=== PATIENT | male | born 1945 | race Caucasian/White ===

== ENCOUNTER 2018-09-04 09:43 | Inpatient (IN) | payer MEDICARE, MEDICAID ==
--- NOTE | 2018-09-04 10:01 | ED Physician Chart ---
ED Chief Complaint/HPI - Patient Information Date Seen:: 09/04/18 Time Seen:: 09:45 Chief Complaint:: hypoxemia History of Present Illness:: About one hour prior to arrival patient had a pulse ox of 72%. Paramedics were called. Diffuse rhonchi were auscultated over the chest. Accu-Chek was 224. Patient was given a breathing treatment and his pulse ox improved but he continued having labored respirations. EKG performed by the paramedics showed a normal sinus rhythm with a rate of 89, borderline left axis deviation, no ST or T-wave changes. Historian:: EMS, Other (soil engineer) Review:: Transfer documents Reviewed ED Review of Systems - Review of Systems General/Constitutional: No fever, No chills, No weight loss, No weakness, No diaphoresis, No edema, No loss of appetite Skin: No skin lesions, No rash, No bruising Head: No headache, No light-headedness Eyes: No loss of vision, No pain, No diplopia ENT: No earache, No nasal drainage, No sore throat, No tinnitus Neck: No neck pain, No swelling, No thyromegaly, No stiffness, No mass noted Cardio Vascular: No chest pain, No palpitations, No PND, No orthopnea, No edema Pulmonary: SOB, No cough, No sputum, No wheezing GI: No nausea, No vomiting, No diarrhea, No pain, No melena, No hematochezia, No constipation, No hematemesis G/U: No dysuria, No frequency, No hematuria Musculoskeletal: No bone or joint pain, No back pain, No muscle pain Endocrine: No polyuria, No polydipsia Psychiatric: Prior psych history Hematopoietic: No bruising, No lymphadenopathy Allergic/Immuno: No urticaria, No angioedema Neurological: No syncope, No focal symptoms, No paresthesia, No headache, No seizure, Confusion, No vertigo ED Past Medical History - Past Medical History Past Medical History: DM, PUD/GERD, Seizures, Other (anemia; schizophrenia; status post urinary tract infection; history of encephalopathy) Family History: Other (unavailable) Social History: Care Facility Surgical History: PEG/GTube Psychiatricy History: Schizophrenia Medication: Reviewed Family Medical History - Family Member Mother History Unknown: Yes ED Physical Exam - Physical Examination Other Gen/Cons comments:: Patient appears alert but is nonverbal Head: Atraumatic Eyes: Lids, conjuctiva normal, PERRL Skin: Nl inspection ENMT: External ears, nose nl Other ENMT comments:: Appears to be edentulous Neck: No JVD Other Respiratory comments:: Diffuse harsh breath sounds Cardio Vascular: No murmur, gallop, rubs Other Cardio Vascular comments:: Heart sounds inaudible GI: No tenderness/rebounding/guarding, No organomegaly Extremities: Normal digits & nails Neuro/Psych: No focal deficits ED Labs/Radiology/EKG Results - Lab Results Results: Laboratory Results - last 24 hr 09/04/18 09/04/18 09:55 09:55 Sodium 126 L Potassium 3.2 L Chloride 79 L Carbon Dioxide 38.9 H Anion Gap 11.3 BUN 26 H Creatinine 0.7 Est GFR ( Amer) TNP Est GFR (Non-Af Amer) TNP BUN/Creatinine Ratio 37.1 Glucose 226 H Calcium 9.3 Valproic Acid 71.8 ED Septic Shock - . Is Septic Shock (SBP<90, OR Lactate>4 mmol\L) present?: No ED Reassessment (Disposition) - Reassessment Reassessment Condition:: Improved - Diagnosis Diagnosis:: Severe hypoxemia; respiratory distress; possible respiratory failure; hyponatremia; hyperglycemia; possible aspiration pneumonia without radiographic findings; diabetes; dementia - Patient Disposition Admitted to:: Telemetry Spoke to:: Manan Garza Admitting Medical Physician:: Manan Garza Condition at Disposition:: Stable, Improved
[2018-09-04] MEDS ORDERED: Albuterol/Ipratropium Neb 3 ML AERS HHN ONE ×2 (10:07→10:09)
--- NOTE | 2018-09-04 10:28 | Diagnostic Imaging Report ---
CHEST X-RAY: AP view INDICATION: Shortness evidence of breath COMPARISON: None FINDINGS: There is abnormal lucency seen along the mid thorax possibly due to significantly distended esophagus. No focal consolidation or effusion. Heart size normal. Degenerative changes are noted. IMPRESSION: Abnormal lucency seen throughout the mid thorax possibly due to a significantly distended esophagus. Etiology such as achalasia should be considered. Recommend clinical correlation and correlation with old exams. Consider further assessment with an esophagram or CT exam.
[2018-09-04 10:37] LABS: ANION GAP 11.3 (7.0-16.0); BUN - UREA NITROGEN 26 mg/dL (7-25); CALCIUM SERUM 9.3 mg/dL (8.6-10.3); CARBON DIOXIDE 38.9 mEq/L (21.0-31.0); CREATININE - SERUM 0.7 mg/dL (0.7-1.3); GLUCOSE 226 mg/dL (70-105); POTASSIUM SERUM 3.2 mEq/L (3.5-5.1); SODIUM SERUM 126 mEq/L (136-145)
[2018-09-04 10:47] LABS: CHLORIDE 79 mEq/L (98-107)
[2018-09-04] MEDS ORDERED: Potassium Chloride Elixir 20 mEq /15 mL UDC GT ONE (10:52)
[2018-09-04] MEDS ORDERED: Potassium Chloride Elixir 20 mEq /15 mL UDC ONE (10:58)
[2018-09-04 11:00] LABS: % BASOPHILS 0.2 % (0.0-2.0); % LYMPHOCYTES 10.4 % (20.0-50.0); % MONOCYTES 8.9 % (2.0-10.0); % NEUTROPHILS 79.5 % (40.0-80.0); EOSINOPHILE ABSOLUTE 0.1 Th/cmm (0.1-0.4); HEMATOCRIT 38.2 % (41.0-60); HEMOGLOBIN 12.5 gm/dL (12-16); LYMPHOCYTE ABSOLUTE 1.2 Th/cmm (1.5-3.0); MEAN CELL VOLUME 90.6 fl (80-99); MEAN CORPUSCULAR HEMOGLOBIN 29.5 pg (27.0-31.0); MEAN CORPUSCULAR HGB CONC 32.6 pg (28.0-36.0); MEAN PLATELET VOLUME 7.7 fl; NEUTROPHILE ABSOLUTE 8.8 Th/cmm (1.8-8.0); PLATELET COUNT 416 Th/cmm (150-400); RED BLOOD COUNT 4.22 Mil/cmm (3.80-5.80); RED CELL DISTRIBUTION WIDTH 14.3 % (11.5-20.0); WHITE BLOOD COUNT 11.1 Th/cmm (4.8-10.8)
[2018-09-04] MEDS ORDERED: GLUCAGON HCl 1 MG KIT SUBQ PRN (13:01)
[2018-09-04] MEDS ORDERED: Maalox 30 mL Cup PO PRN (13:03)
[2018-09-04] MEDS ORDERED: guaiFENesin 200 MG/10 ML UDC PO PRN (13:03)
[2018-09-04] MEDS: D5-0.9%NS 1,000 ML IV SCH (14:00)
--- NOTE | 2018-09-04 14:02 | Internal Medicine Prog Note ---
Internal Medicine Subjective - Subjective Service Date: 09/04/18 ([facility] [id number]) Internal Medicine Objective - Results Result Diagrams: 09/04/18 09:55 09/04/18 09:55 Recent Labs: Laboratory Last Values WBC 11.1 Th/cmm (4.8-10.8) H 09/04/18 09:55 RBC 4.22 Mil/cmm (3.80-5.80) 09/04/18 09:55 Hgb 12.5 gm/dL (12-16) 09/04/18 09:55 Hct 38.2 % (41.0-60) L 09/04/18 09:55 MCV 90.6 fl (80-99) 09/04/18 09:55 MCH 29.5 pg (27.0-31.0) 09/04/18 09:55 MCHC Differential 32.6 pg (28.0-36.0) 09/04/18 09:55 RDW 14.3 % (11.5-20.0) 09/04/18 09:55 Plt Count 416 Th/cmm (150-400) H 09/04/18 09:55 MPV 7.7 fl 09/04/18 09:55 Neutrophils % 79.5 % (40.0-80.0) 09/04/18 09:55 Lymphocytes % 10.4 % (20.0-50.0) L 09/04/18 09:55 Monocytes % 8.9 % (2.0-10.0) 09/04/18 09:55 Eosinophils % 1.0 % (0.0-5.0) 09/04/18 09:55 Basophils % 0.2 % (0.0-2.0) 09/04/18 09:55 Sodium 126 mEq/L (136-145) L 09/04/18 09:55 Potassium 3.2 mEq/L (3.5-5.1) L 09/04/18 09:55 Chloride 79 mEq/L (98-107) L 09/04/18 09:55 Carbon Dioxide 38.9 mEq/L (21.0-31.0) H 09/04/18 09:55 Anion Gap 11.3 (7.0-16.0) 09/04/18 09:55 BUN 26 mg/dL (7-25) H 09/04/18 09:55 Creatinine 0.7 mg/dL (0.7-1.3) 09/04/18 09:55 Est GFR ( Amer) TNP 09/04/18 09:55 Est GFR (Non-Af Amer) TNP 09/04/18 09:55 BUN/Creatinine Ratio 37.1 09/04/18 09:55 Glucose 226 mg/dL (70-105) H 09/04/18 09:55 POC Glucose 201 MG/DL (70 - 105) H 09/04/18 12:52 Calcium 9.3 mg/dL (8.6-10.3) 09/04/18 09:55 Valproic Acid 71.8 ug/mL (50.0-100.0) 09/04/18 09:55 - Physical Exam Vitals and I&O: Vital Signs Temp 98.3 F 09/04/18 12:29 Pulse 88 09/04/18 12:29 Resp 23 09/04/18 12:29 BP 109/62 09/04/18 12:29 Pulse Ox 97 09/04/18 12:29 Intake & Output 09/03/18 09/04/18 09/04/18 18:59 06:59 18:59 Weight (lbs) 140 lb Other: Weight Source Estimated Active Medications: Current Medications Acetaminophen (Tylenol) 650 mg PO Q4H PRN PRN Reason: Pain Or Fever above 101 Stop: 11/03/18 13:02 Al Hydrox/Mg Hydrox/Simethicone (Maalox) 30 ml PO Q6H PRN PRN Reason: Dyspepsia Stop: 11/03/18 13:02 Albuterol Sulfate (Albuterol 2.5mg/3ml Neb Ud) 2.5 mg HHN QIDRT [facility] Stop: 11/03/18 14:59 Benztropine Mesylate (Cogentin) 2 mg GT DAILY [facility] Stop: 11/04/18 08:59 Carbidopa/Levodopa (Sinemet 25mg-100 Mg) 1 tab GT TID [facility] Stop: 11/03/18 13:59 Clonazepam (Klonopin) 0.5 mg PO Q8HR [facility]; Protocol Stop: 11/03/18 20:59 Docusate Sodium (Colace) 100 mg GT BID [facility] Stop: 11/03/18 16:59 Fish Oil ([place] 3) 1,000 mg PO DAILY [facility] Stop: 11/04/18 08:59 Guaifenesin (Robitussin) 200 mg PO Q4HR PRN PRN Reason: Cough or Congestion Stop: 11/03/18 13:02 Heparin Sodium (Porcine) (Heparin) 5,000 units SUBQ Q12HR [facility] Stop: 11/03/18 20:59 Cefepime HCl 1 gm/ Dextrose 50 mls @ 100 mls/hr IV Q12H [facility] Stop: 11/03/18 13:59 Dextrose/Sodium Chloride (D5-0.9%Ns) 1,000 mls @ 80 mls/hr IV .[id number] [facility] Stop: 11/03/18 13:14 Last Admin: 09/04/18 14:00 Dose: 80 mls/hr Insulin Aspart (Novolog) 0 units SUBQ ACHS [facility]; Protocol Stop: 11/03/18 16:29 Ipratropium [place] (Atrovent Neb 0.5mg/2.5ml) 0.5 mg IH QIDRT [facility] Stop: 11/03/18 14:59 Lactobacillus Rhamnosus (Culturelle 15b) 1 each GT DAILY [facility] Stop: 11/04/18 08:59 Lorazepam (Ativan) 1 mg GT Q6HR PRN; Protocol PRN Reason: Agitation Stop: 11/03/18 17:59 Metformin HCl (Glucophage) 500 mg GT BID [facility] Stop: 11/03/18 16:59 Methylprednisolone Sodium Succinate (Solu-Medrol) 80 mg IVP Q8HR [facility] Stop: 11/03/18 20:59 Mirtazapine (Remeron) 15 mg GT HS [facility]; Protocol Stop: 11/03/18 20:59 Miscellaneous (Glucagon,Human Recombinant [Glucagon Emergency Kit]) 1 mg IJ PRN PRN PRN Reason: HYPOGLYCEMIA Miscellaneous (Melatonin [Melatonin]) 5 mg PO HS [facility] Stop: 11/03/18 20:59 Miscellaneous (Valproic Acid (As Sodium Salt) [Depakene]) 750 mg PO HS [facility] Stop: 11/03/18 20:59 Miscellaneous (Valproic Acid (As Sodium Salt) [Depakene]) 500 mg GT DAILY [facility] Stop: 11/04/18 08:59 Multivitamins/Vitamin C (Theragran) 1 tab GT DAILY [facility] Stop: 11/04/18 08:59 Nitroglycerin (Nitrostat) 0.4 mg SL Q5MIN PRN PRN Reason: Chest Pain Stop: 11/03/18 13:02 Ondansetron HCl (Zofran) 4 mg IV Q8H PRN PRN Reason: Nausea / Vomiting Stop: 11/03/18 13:02 Pantoprazole Sodium (Protonix) 20 mg GT DAILY [facility] Stop: 11/04/18 08:59 Quetiapine Fumarate (Seroquel) 300 mg GT HS [facility]; Protocol Stop: 11/03/18 20:59
[2018-09-04] MEDS: Albuterol Nebulizer 2.5mg/3mL HHN SCH ×2 (14:09→18:44)
[2018-09-04] MEDS: Ipratropium Neb 0.5 mg/2.5 mL UD IH SCH ×2 (14:09→18:45)
[2018-09-04] MEDS: INSULIN ASPART, RECOMBINANT 100 UNITS/ML SUBQ SCH ×2 (17:05→20:51)
[2018-09-04] MEDS: Docusate Sodium 100 mg/10 mL UD GT SCH (17:14)
--- NOTE | 2018-09-04 17:30 | History & Physical ---
ADMIT DATE: 09/04/2018 DICTATING FOR: Dr. Manan Garza. CHIEF COMPLAINT: Low oxygen. HISTORY OF PRESENT ILLNESS: This is a 73-year-old male who is a [facility] resident, transferred here to [facility] due to hypoxemia. In the ER, the patient was noted to have oxygen saturation of 72%. Upon examining the patient, the patient is noted to be congested, unable to produce strong cough. For further management, the patient is now admitted to the telemetry unit. PAST MEDICAL HISTORY: Diabetes, GERD, seizures, anemia, schizophrenia, UTI, encephalopathy. FAMILY HISTORY: Noncontributory. SOCIAL HISTORY: The patient is a [facility] resident, requiring 24-hour nursing care. PAST SURGICAL HISTORY: PEG. MEDICATIONS: Please see medication list. PHYSICAL EXAMINATION: GENERAL: Elderly male, awake, alert, appears chronically ill, no apparent distress. VITAL SIGNS: Temperature 98.3, heart rate 88, blood pressure 109/62, respirations 23, O2 of 97%. HEENT: Head: Normocephalic, atraumatic. NECK: Supple. No mass. LUNGS: Scattered rhonchi with scattered wheezes bilaterally. HEART: Regular rhythm. No murmurs, no gallops. ABDOMEN: Soft, nontender, nondistended. EXTREMITIES: No trace of edema noted. LABORATORY DATA: WBC 11.1, H and H 12.5 and 38.2, platelet of 416. Sodium 126, potassium 3.2, chloride 79, BUN 26, creatinine 0.7. DIAGNOSTIC DATA: The patient had a chest x-ray done, impression is abnormal lucency throughout the mid thorax, possibly due to significantly distended esophagus, etiology such as achalasia should be considered. Recommended clinical correlation, correlation with old exams, consider further examination with CT esophagram. ASSESSMENT: Acute respiratory failure, possible pneumonia, leukocytosis, acute renal insufficiency, rule out dehydration, diabetes, seizures, schizophrenia. PLAN: 1. The patient to be admitted to the telemetry unit. We will get a Pulmonology on the case. Sputum culture. 2. Respiratory treatment, IV fluids for hydration, IV antibiotics of Maxipime 1 gram IV q.12h. Accu-Chek a.c. and at bedtime. 3. Seizure precautions. We will continue to monitor this patient. [facility]# [id number]
[2018-09-04] MEDS ORDERED: Non-Formulary Item 1 EA (Melatonin [Melatonin] 5 MG) PO SCH (21:00)
[2018-09-05] MEDS: D5-0.9%NS 1,000 ML IV SCH (01:47)
[2018-09-05 06:05] LABS: HEMOGLOBIN 11.5 gm/dL (12-16); MEAN CORPUSCULAR HEMOGLOBIN 29.6 pg (27.0-31.0); MEAN CORPUSCULAR HGB CONC 32.9 pg (28.0-36.0); MEAN PLATELET VOLUME 7.3 fl; PLATELET COUNT 357 Th/cmm (150-400); RED BLOOD COUNT 3.89 Mil/cmm (3.80-5.80); RED CELL DISTRIBUTION WIDTH 14.1 % (11.5-20.0); WHITE BLOOD COUNT 7.6 Th/cmm (4.8-10.8)
[2018-09-05 06:26] LABS: ANION GAP 11.1 (7.0-16.0); BUN - UREA NITROGEN 19 mg/dL (7-25); CALCIUM SERUM 8.5 mg/dL (8.6-10.3); CARBON DIOXIDE 33.6 mEq/L (21.0-31.0); CHLORIDE 87 mEq/L (98-107); CREATININE - SERUM 0.5 mg/dL (0.7-1.3); GLUCOSE 309 mg/dL (70-105); POTASSIUM SERUM 3.7 mEq/L (3.5-5.1); SODIUM SERUM 128 mEq/L (136-145)
[2018-09-05 06:49] LABS: BAND NEUTROPHILE 1 % (0-10); BASOPHIL 0 % (0-3); EOSINOPHIL 0 % (0-5); LYMPHOCYTE 3 % (20-50); MONOCYTE 1 % (2-10); NEUTROPHILS 95 % (40-80)
[2018-09-05] MEDS: Ipratropium Neb 0.5 mg/2.5 mL UD IH SCH ×4 (07:16→18:58)
[2018-09-05] MEDS: Albuterol Nebulizer 2.5mg/3mL HHN SCH ×4 (07:16→18:58)
--- NOTE | 2018-09-05 07:57 | Diagnostic Imaging Report ---
CHEST X-RAY: AP view INDICATION: Shortness of breath COMPARISON: Chest x-ray 09/04/2018 FINDINGS: Again seen is air-filled structure which may be due to significant distention of the esophagus. Chronic lung changes are seen with increased bibasilar markings likely due to atelectasis. No focal consolidation or effusions. Heart size normal. IMPRESSION: Chronic lung changes with increased bibasilar lung markings likely due to atelectasis. No focal consolidation identified. Again seen is distended air-filled structure likely an air-filled esophagus. Note etiologies such as achalasia cannot be excluded. Esophagram or CT chest would further clarify.
[2018-09-05] MEDS: INSULIN ASPART, RECOMBINANT 100 UNITS/ML SUBQ SCH ×4 (08:24→21:45)
[2018-09-05] MEDS ORDERED: Probiotic Screen MC PRN (09:28)
[2018-09-05] MEDS: Fish Oil 1,000 MG SGL PO SCH (09:34)
[2018-09-05] MEDS: Lactobacillus Rhamnosus GG 15 Billion CFU CAP.SPRINK GT SCH (09:34)
[2018-09-05] MEDS: Benztropine 1 MG TAB GT SCH (09:34)
[2018-09-05] MEDS: Docusate Sodium 100 mg/10 mL UD GT SCH ×2 (09:34→16:50)
[2018-09-05] MEDS: Multivitamin Tab GT SCH (09:35)
[2018-09-05] MEDS: Pantoprazole 40 mg/Packet GT SCH (09:35)
[2018-09-05 12:35] LABS: ALLEN TEST Positive; pH 7.45 (7.35-7.45)
--- NOTE | 2018-09-05 12:35 | Internal Medicine Prog Note ---
Internal Medicine Subjective - Subjective Service Date: 09/05/18 Patient seen and examined:: with staff Patient is:: awake, verbal Per staff patient has:: tolerating meds Internal Medicine Objective - Results Result Diagrams: 09/05/18 05:43 09/05/18 05:43 Recent Labs: Laboratory Last Values WBC 7.6 Th/cmm (4.8-10.8) 09/05/18 05:43 RBC 3.89 Mil/cmm (3.80-5.80) 09/05/18 05:43 Hgb 11.5 gm/dL (12-16) L 09/05/18 05:43 Hct 35.0 % (41.0-60) L 09/05/18 05:43 MCV 90.0 fl (80-99) 09/05/18 05:43 MCH 29.6 pg (27.0-31.0) 09/05/18 05:43 MCHC Differential 32.9 pg (28.0-36.0) 09/05/18 05:43 RDW 14.1 % (11.5-20.0) 09/05/18 05:43 Plt Count 357 Th/cmm (150-400) 09/05/18 05:43 MPV 7.3 fl 09/05/18 05:43 Add Manual Diff YES 09/05/18 05:43 Neutrophils % 79.5 % (40.0-80.0) 09/04/18 09:55 Band Neutrophils % 1 % (0-10) 09/05/18 05:43 Lymphocytes % 10.4 % (20.0-50.0) L 09/04/18 09:55 Monocytes % 8.9 % (2.0-10.0) 09/04/18 09:55 Eosinophils % 1.0 % (0.0-5.0) 09/04/18 09:55 Basophils % 0.2 % (0.0-2.0) 09/04/18 09:55 Neutrophils (Manual) 95 % (40-80) H 09/05/18 05:43 Lymphocytes 3 % (20-50) L 09/05/18 05:43 Monocytes 1 % (2-10) L 09/05/18 05:43 Eosinophils 0 % (0-5) 09/05/18 05:43 Basophils 0 % (0-3) 09/05/18 05:43 Sodium 128 mEq/L (136-145) L 09/05/18 05:43 Potassium 3.7 mEq/L (3.5-5.1) 09/05/18 05:43 Chloride 87 mEq/L (98-107) L 09/05/18 05:43 Carbon Dioxide 33.6 mEq/L (21.0-31.0) H 09/05/18 05:43 Anion Gap 11.1 (7.0-16.0) 09/05/18 05:43 BUN 19 mg/dL (7-25) 09/05/18 05:43 Creatinine 0.5 mg/dL (0.7-1.3) L 09/05/18 05:43 Est GFR ( Amer) TNP 09/05/18 05:43 Est GFR (Non-Af Amer) TNP 09/05/18 05:43 BUN/Creatinine Ratio 38.0 09/05/18 05:43 Glucose 309 mg/dL (70-105) H 09/05/18 05:43 POC Glucose 312 MG/DL (70 - 105) H 09/05/18 11:34 Calcium 8.5 mg/dL (8.6-10.3) L 09/05/18 05:43 Valproic Acid 71.8 ug/mL (50.0-100.0) 09/04/18 09:55 - Physical Exam Vitals and I&O: Vital Signs Temp 96.7 F 09/05/18 08:00 Pulse 89 09/05/18 11:27 Resp 18 09/05/18 11:27 BP 98/64 09/05/18 08:00 Pulse Ox 99 09/05/18 11:27 Intake & Output 09/04/18 09/05/18 09/05/18 18:59 06:59 18:59 Intake Total 50 942.667 Balance 50 942.667 Weight (lbs) 140 lb Intake: Intake, IV Amount 50 942.667 Cefepime 1 gm In Dextrose 50 5% 50 ml @ 100 mls/hr IV Q12H [facility] Rx#:[id number] D5-0.9%Ns 1,000 ml @ 80 942.667 mls/hr IV .[id number] [facility] Rx #:[id number] Other: Weight Source Estimated Active Medications: Current Medications Acetaminophen (Tylenol) 650 mg PO Q4H PRN PRN Reason: Pain Or Fever above 101 Stop: 11/03/18 13:02 Al Hydrox/Mg Hydrox/Simethicone (Maalox) 30 ml PO Q6H PRN PRN Reason: Dyspepsia Stop: 11/03/18 13:02 Albuterol Sulfate (Albuterol 2.5mg/3ml Neb Ud) 2.5 mg HHN QIDRT [facility] Stop: 11/03/18 14:59 Last Admin: 09/05/18 11:26 Dose: 2.5 mg Benztropine Mesylate (Cogentin) 2 mg GT DAILY [facility] Stop: 11/04/18 08:59 Last Admin: 09/05/18 09:34 Dose: 2 mg Carbidopa/Levodopa (Sinemet 25mg-100 Mg) 1 tab GT TID [facility] Stop: 11/03/18 13:59 Last Admin: 09/05/18 09:34 Dose: 1 tab Clonazepam (Klonopin) 0.5 mg PO Q8HR [facility]; Protocol Stop: 11/03/18 20:59 Last Admin: 09/05/18 07:36 Dose: 0.5 mg Docusate Sodium (Colace) 100 mg GT BID [facility] Stop: 11/03/18 16:59 Last Admin: 09/05/18 09:34 Dose: 100 mg Fish Oil ([place] 3) 1,000 mg PO DAILY [facility] Stop: 11/04/18 08:59 Last Admin: 09/05/18 09:34 Dose: 1,000 mg Glucagon (Glucagen) 1 mg SUBQ PRN PRN PRN Reason: BS below 60 & not tolerate po Guaifenesin (Robitussin) 200 mg PO Q4HR PRN PRN Reason: Cough or Congestion Stop: 11/03/18 13:02 Heparin Sodium (Porcine) (Heparin) 5,000 units SUBQ Q12HR [facility] Stop: 11/03/18 20:59 Last Admin: 09/05/18 09:30 Dose: 5,000 units Cefepime HCl 1 gm/ Dextrose 50 mls @ 100 mls/hr IV Q12H [facility] Stop: 11/03/18 13:59 Last Admin: 09/05/18 01:42 Dose: 100 mls/hr Dextrose/Sodium Chloride (D5-0.9%Ns) 1,000 mls @ 80 mls/hr IV .[id number] [facility] Stop: 11/03/18 13:14 Last Admin: 09/05/18 01:47 Dose: 80 mls/hr Insulin Aspart (Novolog) 0 units SUBQ ACHS [facility]; Protocol Stop: 11/03/18 16:29 Last Admin: 09/05/18 08:24 Dose: 6 units Ipratropium [place] (Atrovent Neb 0.5mg/2.5ml) 0.5 mg IH QIDRT [facility] Stop: 11/03/18 14:59 Last Admin: 09/05/18 11:26 Dose: 0.5 mg Lactobacillus Rhamnosus (Culturelle 15b) 1 each GT DAILY [facility] Stop: 11/04/18 08:59 Last Admin: 09/05/18 09:34 Dose: 1 each Lorazepam (Ativan) 1 mg GT Q6HR PRN; Protocol PRN Reason: Agitation Stop: 11/03/18 17:59 Last Admin: 09/04/18 15:26 Dose: 1 mg Metformin HCl (Glucophage) 500 mg GT BID [facility] Stop: 11/03/18 16:59 Last Admin: 09/05/18 09:34 Dose: 500 mg Methylprednisolone Sodium Succinate (Solu-Medrol) 80 mg IVP Q8HR [facility] Stop: 11/03/18 20:59 Last Admin: 09/05/18 04:56 Dose: 80 mg Mirtazapine (Remeron) 15 mg GT HS [facility]; Protocol Stop: 11/03/18 20:59 Miscellaneous (Probiotic Screen) 1 ea MC PRN PRN PRN Reason: PROTOCOL Stop: 11/04/18 09:27 Multivitamins/Vitamin C (Theragran) 1 tab GT DAILY [facility] Stop: 11/04/18 08:59 Last Admin: 09/05/18 09:35 Dose: 1 tab Nitroglycerin (Nitrostat) 0.4 mg SL Q5MIN PRN PRN Reason: Chest Pain Stop: 11/03/18 13:02 Ondansetron HCl (Zofran) 4 mg IV Q8H PRN PRN Reason: Nausea / Vomiting Stop: 11/03/18 13:02 Pantoprazole Sodium (Protonix) 20 mg GT DAILY [facility] Stop: 11/04/18 08:59 Last Admin: 09/05/18 09:35 Dose: 20 mg Quetiapine Fumarate (Seroquel) 300 mg GT HS [facility]; Protocol Stop: 11/03/18 20:59 Valproate Sodium (Depakene) 500 mg GT DAILY [facility] Stop: 11/04/18 08:59 Last Admin: 09/05/18 09:35 Dose: 500 mg Valproate Sodium (Depakene) 750 mg GT HS [facility] Stop: 11/03/18 20:59 General: alert HEENT: NC/AT, PERRLA Neck: Supple Lungs: ronchi Cardiovascular: RRR, Normal S1, Normal S2, without murmur Abdomen: soft, non-tender, non-distended Neurological: alert Internal Medicine Assmt/Plan - Assessment Assessment: acute resp failure pna leukocytosis acute renal insufficiency r/o dehydration dm seizures schizophrenia - Plan Plan: change ivf to ns suction patient as needed respiratory tx to continue supplemental o2 continue ivabx continue current plan of care
[2018-09-05] MEDS: Sodium Chloride 0.9% 1,000 ML IV SCH (12:58)
--- NOTE | 2018-09-05 20:19 | Consultation ---
DATE OF CONSULTATION: 09/04/[address] Garza. Thank you very much, Dr. Garza for this consultation. HISTORY OF PRESENT ILLNESS: This is a 73-year-old male. The patient was transferred with congestion, some hypoxemia, agitation, low saturation, placed on oxygen, nebulized treatment; was admitted for treatment and management. The patient is very agitated, trying to hit me, trying talk to him and examine him and taking his oxygen off. The patient was diagnosed with esophageal cancer recently in June and the patient is following with Hematology evaluation and Oncology evaluation. PAST MEDICAL HISTORY: Encephalopathy, dementia, psychiatric disorder, and anemia. SOCIAL HISTORY: Not available. REVIEW OF SYSTEMS: Unable to obtain because of the patient's condition. PHYSICAL EXAMINATION: VITAL SIGNS: Temperature 98.2, pulse 95, respiration is 18, blood pressure is 130/76, and saturation 97%. HEENT: Atraumatic, normocephalic. Eyes: Pupils react to light and accommodation. Ears, nose and throat are normal. NECK: Supple. No JVD. CHEST: Fair air entry bilaterally, few rhonchi bilaterally. HEART: Regular. ABDOMEN: Soft. EXTREMITIES: No edema. LABORATORY DATA: WBC is 11.1, hemoglobin 12.5, hematocrit 38.2, and platelets 416. Sodium 146, potassium 3.2, BUN 26, and creatinine 0.7. No obvious infiltrate on chest x-ray. IMPRESSION: This is a 73-year-old male with; 1. Respiratory failure, hypoxemia. 2. Acute bronchitis. 3. Possible chronic obstructive pulmonary disease. 4. Esophageal cancer. PLAN: 1. Nebulizer treatment. 2. Antibiotic. 3. Follow up chest x-ray. 4. Continue supportive care. Thank you very much Dr. Garza for this consultation. We will follow the patient with you. JOB# [id number]
[2018-09-06] MEDS: Sodium Chloride 0.9% 1,000 ML IV SCH ×2 (02:29→13:04)
[2018-09-06 05:51] LABS: HEMATOCRIT 28.5 % (41.0-60); HEMOGLOBIN 9.3 gm/dL (12-16); MEAN CELL VOLUME 91.3 fl (80-99); MEAN CORPUSCULAR HEMOGLOBIN 29.7 pg (27.0-31.0); MEAN CORPUSCULAR HGB CONC 32.5 pg (28.0-36.0); MEAN PLATELET VOLUME 7.1 fl; PLATELET COUNT 327 Th/cmm (150-400); RED BLOOD COUNT 3.12 Mil/cmm (3.80-5.80); RED CELL DISTRIBUTION WIDTH 14.3 % (11.5-20.0); WHITE BLOOD COUNT 9.9 Th/cmm (4.8-10.8)
[2018-09-06 06:03] LABS: ANION GAP 14.5 (7.0-16.0); BUN - UREA NITROGEN 25 mg/dL (7-25); CARBON DIOXIDE 26.4 mEq/L (21.0-31.0); CHLORIDE 94 mEq/L (98-107); CREATININE - SERUM 0.7 mg/dL (0.7-1.3); GLUCOSE 264 mg/dL (70-105); POTASSIUM SERUM 3.9 mEq/L (3.5-5.1); SODIUM SERUM 131 mEq/L (136-145)
[2018-09-06 06:58] LABS: BAND NEUTROPHILE 0 % (0-10); NEUTROPHILS 95 % (40-80)
[2018-09-06 06:59] LABS: BASOPHIL 0 % (0-3); EOSINOPHIL 0 % (0-5); LYMPHOCYTE 4 % (20-50); MONOCYTE 1 % (2-10)
[2018-09-06] MEDS: Ipratropium Neb 0.5 mg/2.5 mL UD IH SCH ×5 (07:03→19:17)
[2018-09-06] MEDS: Albuterol Nebulizer 2.5mg/3mL HHN SCH ×5 (07:03→19:17)
[2018-09-06] MEDS: INSULIN ASPART, RECOMBINANT 100 UNITS/ML SUBQ SCH ×4 (08:58→20:48)
[2018-09-06] MEDS: Docusate Sodium 100 mg/10 mL UD GT SCH ×2 (09:02→16:19)
[2018-09-06] MEDS: Fish Oil 1,000 MG SGL PO SCH (09:03)
[2018-09-06] MEDS: Lactobacillus Rhamnosus GG 15 Billion CFU CAP.SPRINK GT SCH (09:03)
[2018-09-06] MEDS: Benztropine 1 MG TAB GT SCH (09:03)
[2018-09-06] MEDS: Pantoprazole 40 mg/Packet GT SCH (09:03)
[2018-09-06] MEDS: Multivitamin Tab GT SCH (09:03)
--- NOTE | 2018-09-06 11:38 | Internal Medicine Prog Note ---
Internal Medicine Subjective - Subjective Patient seen and examined:: with staff, chart reviewed Patient is:: awake, non-verbal, non-interactive Patient Complaints of:: congestion Per staff patient has:: no adverse event, no episodes of fall, confused, tolerating meds Internal Medicine Objective - Results Result Diagrams: 09/06/18 05:30 09/06/18 05:30 Recent Labs: Laboratory Last Values WBC 9.9 Th/cmm (4.8-10.8) 09/06/18 05:30 RBC 3.12 Mil/cmm (3.80-5.80) L 09/06/18 05:30 Hgb 9.3 gm/dL (12-16) L 09/06/18 05:30 Hct 28.5 % (41.0-60) L D 09/06/18 05:30 MCV 91.3 fl (80-99) 09/06/18 05:30 MCH 29.7 pg (27.0-31.0) 09/06/18 05:30 MCHC Differential 32.5 pg (28.0-36.0) 09/06/18 05:30 RDW 14.3 % (11.5-20.0) 09/06/18 05:30 Plt Count 327 Th/cmm (150-400) 09/06/18 05:30 MPV 7.1 fl 09/06/18 05:30 Add Manual Diff YES 09/06/18 05:30 Neutrophils % 79.5 % (40.0-80.0) 09/04/18 09:55 Band Neutrophils % 0 % (0-10) 09/06/18 05:30 Lymphocytes % 10.4 % (20.0-50.0) L 09/04/18 09:55 Monocytes % 8.9 % (2.0-10.0) 09/04/18 09:55 Eosinophils % 1.0 % (0.0-5.0) 09/04/18 09:55 Basophils % 0.2 % (0.0-2.0) 09/04/18 09:55 Neutrophils (Manual) 95 % (40-80) H 09/06/18 05:30 Lymphocytes 4 % (20-50) L 09/06/18 05:30 Monocytes 1 % (2-10) L 09/06/18 05:30 Eosinophils 0 % (0-5) 09/06/18 05:30 Basophils 0 % (0-3) 09/06/18 05:30 Specimen Source Arterial 09/05/18 12:18 Sample Site Right Radial 09/05/18 12:18 pH 7.45 (7.35-7.45) 09/05/18 12:18 pCO2 50.0 mmHg (35.0-45.0) H 09/05/18 12:18 pO2 152.0 mmHg (80.0-100.0) H 09/05/18 12:18 HCO3 32.2 mEq/L (20.0-26.0) H 09/05/18 12:18 Base Excess 9.3 mEq/L (-3.0-3.0) H 09/05/18 12:18 O2 Saturation 99.0 % (92.0-100.0) 09/05/18 12:18 Brad Test Positive 09/05/18 12:18 Vent Rate N/A 09/05/18 12:18 Inspired O2 28 09/05/18 12:18 Tidal Volume N/A 09/05/18 12:18 PEEP N/A 09/05/18 12:18 Pressure (ins/psv/peep) N/A 09/05/18 12:18 Critical Value DM 09/05/18 12:18 Sodium 131 mEq/L (136-145) L 09/06/18 05:30 Potassium 3.9 mEq/L (3.5-5.1) 09/06/18 05:30 Chloride 94 mEq/L (98-107) L 09/06/18 05:30 Carbon Dioxide 26.4 mEq/L (21.0-31.0) 09/06/18 05:30 Anion Gap 14.5 (7.0-16.0) 09/06/18 05:30 BUN 25 mg/dL (7-25) 09/06/18 05:30 Creatinine 0.7 mg/dL (0.7-1.3) 09/06/18 05:30 Est GFR ( Amer) TNP 09/06/18 05:30 Est GFR (Non-Af Amer) TNP 09/06/18 05:30 BUN/Creatinine Ratio 35.7 09/06/18 05:30 Glucose 264 mg/dL (70-105) H 09/06/18 05:30 POC Glucose 301 MG/DL (70 - 105) H 09/06/18 08:56 Calcium 8.0 mg/dL (8.6-10.3) L 09/06/18 05:30 Valproic Acid 71.8 ug/mL (50.0-100.0) 09/04/18 09:55 - Physical Exam Vitals and I&O: Vital Signs Temp 97.4 F 09/06/18 09:35 Pulse 78 09/06/18 11:17 Resp 20 09/06/18 11:17 BP 105/50 09/06/18 09:35 Pulse Ox 97 09/06/18 11:17 Intake & Output 09/05/18 09/06/18 09/06/18 18:59 06:59 18:59 Intake Total 490 610 Balance 490 610 Weight (lbs) 63.503 kg 63.503 kg Intake: Intake, IV Amount 490 610 Cefepime 1 gm In Dextrose 50 50 5% 50 ml @ 100 mls/hr IV Q12H [facility] Rx#:[id number] Sodium Chloride 0.9% 1, 440 560 000 ml @ 80 mls/hr IV . [id number] [facility] Rx#:[id number] Other: # Voids 3 # Bowel Movements 0 Weight Source Bedscale Bedscale Active Medications: Current Medications Acetaminophen (Tylenol) 650 mg PO Q4H PRN PRN Reason: Pain Or Fever above 101 Stop: 11/03/18 13:02 Al Hydrox/Mg Hydrox/Simethicone (Maalox) 30 ml PO Q6H PRN PRN Reason: Dyspepsia Stop: 11/03/18 13:02 Albuterol Sulfate (Albuterol 2.5mg/3ml Neb Ud) 2.5 mg HHN QIDRT [facility] Stop: 11/03/18 14:59 Last Admin: 09/06/18 11:10 Dose: 2.5 mg Benztropine Mesylate (Cogentin) 2 mg GT DAILY [facility] Stop: 11/04/18 08:59 Last Admin: 09/06/18 09:03 Dose: 2 mg Carbidopa/Levodopa (Sinemet 25mg-100 Mg) 1 tab GT TID [facility] Stop: 11/03/18 13:59 Last Admin: 09/06/18 09:03 Dose: 1 tab Clonazepam (Klonopin) 0.5 mg PO Q8HR [facility]; Protocol Stop: 11/03/18 20:59 Last Admin: 09/06/18 05:24 Dose: 0.5 mg Docusate Sodium (Colace) 100 mg GT BID [facility] Stop: 11/03/18 16:59 Last Admin: 09/06/18 09:02 Dose: 100 mg Fish Oil ([place] 3) 1,000 mg PO DAILY [facility] Stop: 11/04/18 08:59 Last Admin: 09/06/18 09:03 Dose: 1,000 mg Glucagon (Glucagen) 1 mg SUBQ PRN PRN PRN Reason: BS below 60 & not tolerate po Guaifenesin (Robitussin) 200 mg PO Q4HR PRN PRN Reason: Cough or Congestion Stop: 11/03/18 13:02 Heparin Sodium (Porcine) (Heparin) 5,000 units SUBQ Q12HR [facility] Stop: 11/03/18 20:59 Last Admin: 09/06/18 08:58 Dose: 5,000 units Cefepime HCl 1 gm/ Dextrose 50 mls @ 100 mls/hr IV Q12H [facility] Stop: 11/03/18 13:59 Last Infusion: 09/06/18 03:00 Dose: Infused Sodium Chloride (Nacl 0.9%) 1,000 mls @ 80 mls/hr IV .[id number] [facility] Stop: 11/04/18 12:59 Last Admin: 09/06/18 02:29 Dose: 80 mls/hr Insulin Aspart (Novolog) 0 units SUBQ ACHS [facility]; Protocol Stop: 11/03/18 16:29 Last Admin: 09/06/18 08:58 Dose: 6 units Ipratropium [place] (Atrovent Neb 0.5mg/2.5ml) 0.5 mg IH QIDRT [facility] Stop: 11/03/18 14:59 Last Admin: 09/06/18 11:10 Dose: 0.5 mg Lactobacillus Rhamnosus (Culturelle 15b) 1 each GT DAILY [facility] Stop: 11/04/18 08:59 Last Admin: 09/06/18 09:03 Dose: 1 each Lorazepam (Ativan) 1 mg GT Q6HR PRN; Protocol PRN Reason: Agitation Stop: 11/03/18 17:59 Last Admin: 09/04/18 15:26 Dose: 1 mg Metformin HCl (Glucophage) 500 mg GT BID [facility] Stop: 11/03/18 16:59 Last Admin: 09/06/18 09:03 Dose: 500 mg Methylprednisolone Sodium Succinate (Solu-Medrol) 80 mg IVP Q8HR [facility] Stop: 11/03/18 20:59 Last Admin: 09/06/18 05:25 Dose: 80 mg Mirtazapine (Remeron) 15 mg GT HS [facility]; Protocol Stop: 11/03/18 20:59 Last Admin: 09/05/18 21:45 Dose: 15 mg Miscellaneous (Probiotic Screen) 1 ea MC PRN PRN PRN Reason: PROTOCOL Stop: 11/04/18 09:27 Multivitamins/Vitamin C (Theragran) 1 tab GT DAILY [facility] Stop: 11/04/18 08:59 Last Admin: 09/06/18 09:03 Dose: 1 tab Nitroglycerin (Nitrostat) 0.4 mg SL Q5MIN PRN PRN Reason: Chest Pain Stop: 11/03/18 13:02 Ondansetron HCl (Zofran) 4 mg IV Q8H PRN PRN Reason: Nausea / Vomiting Stop: 11/03/18 13:02 Pantoprazole Sodium (Protonix) 20 mg GT DAILY [facility] Stop: 11/04/18 08:59 Last Admin: 09/06/18 09:03 Dose: 20 mg Quetiapine Fumarate (Seroquel) [address] [facility]; Protocol Stop: 11/03/18 20:59 Last Admin: 09/05/18 21:45 Dose: 300 mg Valproate Sodium (Depakene) 500 mg GT DAILY [facility] Stop: 11/04/18 08:59 Last Admin: 09/06/18 09:02 Dose: 500 mg Valproate Sodium (Depakene) [address] [facility] Stop: 11/03/18 20:59 Last Admin: 09/05/18 21:45 Dose: 750 mg General: demented HEENT: NC/AT, PERRLA Neck: Supple Lungs: congested, rales, ronchi Cardiovascular: RRR, Normal S1, Normal S2, without murmur Abdomen: soft, non-tender, non-distended Extremities: excoriation, ecchymosis Neurological: lethargic, disorganized, bedbound Internal Medicine Assmt/Plan - Assessment Assessment: - Assessment Assessment: acute resp failure pna leukocytosis acute renal insufficiency r/o dehydration dm seizures schizophrenia - Plan Plan: change ivf to ns suction patient as needed respiratory tx to continue supplemental o2 continue ivabx continue current plan of care - Plan Plan: will check cxr jessica rn Nutritional Asmnt/Malnutr-PDOC - Dietary Evaluation Malnutrition Findings (Please click <Entered> for more info): Nutritional Asmnt/Malnutrition Start: 09/05/18 15: 29 Text: Status: Complete Freq: Protocol: Document 09/05/18 15:31 TANNER (Rec: 09/05/18 16:03 MIKEANTHONY KULWINDER-[email or web address]) Nutritional Asmnt/Malnutrition Patient General Information Nutritional Screening High Risk Consult Diagnosis acute respiratory failure Pertinent Medical Hx/Surgical Hx DM, PUD/GERD, seizures, anemia , schizophrenia, status post UTI, encephalopathy, PEG/Gtube Subjective Information Received consult for g-tube feeding. Pt sleeping; TF not running at time of visit. Per nurse note 09/05: pt is receiving oxygen therapy. Current Diet Order/ Nutrition Support Tube Feeding: Glucerna 1.2 @ 60 ml/hr x 20 hrs Pertinent Medications maalox, colace, omega 3, glucagen, heparin, novolog, culturelle, theragran, zofran, protonix, Nacl 0.9%, seroquel Pertinent Labs 09/05: Na 128, K 3.7, Cl 87, BUN 19, Cr 0.5, glucose 309, POC 312-346, Ca 8.5 09/04: Na 126, K 3.2, Cl 79, BUN 26, Cr 0.7, glucose 226, POC 201-260, Ca 9.3 Nutritional Hx/Data Height 1.63 m Height (Calculated Centimeters) 162.6 Current Weight (lbs) 63.503 kg Weight (Calculated Kilograms) 63.5 Weight (Calculated Grams) 63986.9 [place] Body Weight 130 lb Body Mass Index (BMI) 24.0 Weight Status Approriate GI Symptoms GI Symptoms None Last BM none noted Difficult in: Swallowing Food Allergies No Skin Integrity/Comment: salomón herring 14 Estimated Nutritional Goals BEE in Kcals: Using Current wt Calories/Kcals/Kg 27-32 Kcals Calculated 2977-7452 Protein: Using Current wt Protein g/k.2-1.5 Protein Calculated 76-95 g Fluid: ml 3085-2621 (1 ml/kcal) Nutritional Problem 1. Problem Problem Inadequate energy intake Etiology EN infusion, increased needs for acute respiratory failure Signs/Symptoms: current TF regimen providing 1440 kcals which does not meet 100% of estimated kcal needs Malnutrition Alert Is there a minimum of two criteria No selected? Query Text:Check all the applicable criteria. A minimum of two criteria are recommended for diagnosis of either severe or non-severe malnutrition. Malnutrition Related to Morbid Obesity Malnutrition related to morbid obesity No Intervention/Recommendation Comments 1. Recommend to modify rate of Glucerna 1.2 to 70 ml/hr x 20 hrs, which provides 1680 kcals and 84 g protein, meeting >95% of estimated kcal needs and 100% estimated protein needs 2. Monitor TF rate, tolerance, wt, skin integrity and labs 3. F/U as high risk in 2-3 days, 09/07-09/08 Expected Outcomes/Goals Expected Outcomes/Goals 1. Pt to meet at least 75% of nutritional needs via nutrition support with tolerance 2. Wt stability, skin to remain intact, labs to approach WNL. Reviewed by Theresa Turcios RD
[2018-09-06] MEDS ORDERED: Ipratropium Neb 0.5 mg/2.5 mL UD HHN ONE (14:08)
[2018-09-06] MEDS ORDERED: Albuterol Nebulizer 2.5mg/3mL HHN ONE (14:08)
[2018-09-07] MEDS: Sodium Chloride 0.9% 1,000 ML IV SCH ×2 (02:36→15:41)
[2018-09-07 05:14] LABS: % BASOPHILS 0.2 % (0.0-2.0); % EOSINOPHILS 0.1 % (0.0-5.0); % LYMPHOCYTES 7.8 % (20.0-50.0); % MONOCYTES 4.4 % (2.0-10.0); % NEUTROPHILS 87.5 % (40.0-80.0); HEMATOCRIT 29.3 % (41.0-60); HEMOGLOBIN 9.6 gm/dL (12-16); LYMPHOCYTE ABSOLUTE 0.7 Th/cmm (1.5-3.0); MEAN CELL VOLUME 89.8 fl (80-99); MEAN CORPUSCULAR HEMOGLOBIN 29.5 pg (27.0-31.0); MEAN CORPUSCULAR HGB CONC 32.9 pg (28.0-36.0); MEAN PLATELET VOLUME 6.9 fl; MONOCYTE ABSOLUTE 0.4 Th/cmm (0.3-1.0); NEUTROPHILE ABSOLUTE 7.9 Th/cmm (1.8-8.0); PLATELET COUNT 316 Th/cmm (150-400); RED BLOOD COUNT 3.26 Mil/cmm (3.80-5.80); RED CELL DISTRIBUTION WIDTH 14.1 % (11.5-20.0)
[2018-09-07 06:06] LABS: ANION GAP 12.5 (7.0-16.0); BUN - UREA NITROGEN 30 mg/dL (7-25); CARBON DIOXIDE 26.5 mEq/L (21.0-31.0); CHLORIDE 96 mEq/L (98-107); CREATININE - SERUM 0.7 mg/dL (0.7-1.3); GLUCOSE 283 mg/dL (70-105); SODIUM SERUM 131 mEq/L (136-145)
[2018-09-07 06:20] LABS: BAND NEUTROPHILE 0 % (0-10); LYMPHOCYTE 8 % (20-50); MONOCYTE 4 % (2-10); NEUTROPHILS 88 % (40-80)
[2018-09-07] MEDS: INSULIN ASPART, RECOMBINANT 100 UNITS/ML SUBQ SCH ×4 (06:48→21:15)
[2018-09-07] MEDS: Ipratropium Neb 0.5 mg/2.5 mL UD IH SCH ×4 (06:51→18:37)
[2018-09-07] MEDS: Albuterol Nebulizer 2.5mg/3mL HHN SCH ×4 (06:51→18:38)
[2018-09-07] MEDS: Docusate Sodium 100 mg/10 mL UD GT SCH ×2 (09:05→16:26)
[2018-09-07] MEDS: Benztropine 1 MG TAB GT SCH (09:05)
[2018-09-07] MEDS: Multivitamin Tab GT SCH (09:05)
[2018-09-07] MEDS: Lactobacillus Rhamnosus GG 15 Billion CFU CAP.SPRINK GT SCH (09:06)
[2018-09-07] MEDS: Fish Oil 1,000 MG SGL PO SCH (09:06)
[2018-09-07] MEDS: Pantoprazole 40 mg/Packet GT SCH (09:06)
--- NOTE | 2018-09-07 09:11 | Diagnostic Imaging Report ---
CHEST X-RAY: AP view INDICATION: Shortness of breath COMPARISON: Chest x-ray 09/05/2018 FINDINGS: Again seen is lucency along the mid to upper thorax what is likely to be marked air distention of the esophagus. Increased interstitial lung markings are noted with bibasal atelectasis. No focal consolidation or effusions. Heart size is normal. IMPRESSION: Increased lucency along the mid to upper thorax as seen on prior exam which may be due to dilated air-filled esophagus. Please correlate with clinical history. Esophagram or CT exam would further clarify Increased interstitial lung markings nonspecific and may be chronic. No focal consolidation identified.
--- NOTE | 2018-09-07 10:07 | Internal Medicine Prog Note ---
Internal Medicine Subjective - Subjective Patient seen and examined:: with staff, chart reviewed Patient is:: awake, non-verbal, non-interactive Patient Complaints of:: congestion Per staff patient has:: no adverse event, no episodes of fall, confused, tolerating meds Internal Medicine Objective - Results Result Diagrams: 09/07/18 05:05 09/07/18 05:05 Recent Labs: Laboratory Last Values WBC 9.0 Th/cmm (4.8-10.8) 09/07/18 05:05 RBC 3.26 Mil/cmm (3.80-5.80) L 09/07/18 05:05 Hgb 9.6 gm/dL (12-16) L 09/07/18 05:05 Hct 29.3 % (41.0-60) L 09/07/18 05:05 MCV 89.8 fl (80-99) 09/07/18 05:05 MCH 29.5 pg (27.0-31.0) 09/07/18 05:05 MCHC Differential 32.9 pg (28.0-36.0) 09/07/18 05:05 RDW 14.1 % (11.5-20.0) 09/07/18 05:05 Plt Count 316 Th/cmm (150-400) 09/07/18 05:05 MPV 6.9 fl 09/07/18 05:05 Add Manual Diff YES 09/06/18 05:30 Neutrophils % 87.5 % (40.0-80.0) H 09/07/18 05:05 Band Neutrophils % 0 % (0-10) 09/07/18 05:05 Lymphocytes % 7.8 % (20.0-50.0) L 09/07/18 05:05 Monocytes % 4.4 % (2.0-10.0) 09/07/18 05:05 Eosinophils % 0.1 % (0.0-5.0) 09/07/18 05:05 Basophils % 0.2 % (0.0-2.0) 09/07/18 05:05 Neutrophils (Manual) 88 % (40-80) H 09/07/18 05:05 Lymphocytes 8 % (20-50) L 09/07/18 05:05 Monocytes 4 % (2-10) 09/07/18 05:05 Eosinophils 0 % (0-5) 09/06/18 05:30 Basophils 0 % (0-3) 09/06/18 05:30 Specimen Source Arterial 09/05/18 12:18 Sample Site Right Radial 09/05/18 12:18 pH 7.45 (7.35-7.45) 09/05/18 12:18 pCO2 50.0 mmHg (35.0-45.0) H 09/05/18 12:18 pO2 152.0 mmHg (80.0-100.0) H 09/05/18 12:18 HCO3 32.2 mEq/L (20.0-26.0) H 09/05/18 12:18 Base Excess 9.3 mEq/L (-3.0-3.0) H 09/05/18 12:18 O2 Saturation 99.0 % (92.0-100.0) 09/05/18 12:18 Brad Test Positive 09/05/18 12:18 Vent Rate N/A 09/05/18 12:18 Inspired O2 28 09/05/18 12:18 Tidal Volume N/A 09/05/18 12:18 PEEP N/A 09/05/18 12:18 Pressure (ins/psv/peep) N/A 09/05/18 12:18 Critical Value DM 09/05/18 12:18 Sodium 131 mEq/L (136-145) L 09/07/18 05:05 Potassium 4.0 mEq/L (3.5-5.1) 09/07/18 05:05 Chloride 96 mEq/L (98-107) L 09/07/18 05:05 Carbon Dioxide 26.5 mEq/L (21.0-31.0) 09/07/18 05:05 Anion Gap 12.5 (7.0-16.0) 09/07/18 05:05 BUN 30 mg/dL (7-25) H 09/07/18 05:05 Creatinine 0.7 mg/dL (0.7-1.3) 09/07/18 05:05 Est GFR ( Amer) TNP 09/07/18 05:05 Est GFR (Non-Af Amer) TNP 09/07/18 05:05 BUN/Creatinine Ratio 42.9 09/07/18 05:05 Glucose 283 mg/dL (70-105) H 09/07/18 05:05 POC Glucose 262 MG/DL (70 - 105) H 09/06/18 20:42 Calcium 8.0 mg/dL (8.6-10.3) L 09/07/18 05:05 B-Natriuretic Peptide 329.0 pg/mL (5.0-100.0) H 09/07/18 05:05 Valproic Acid 71.8 ug/mL (50.0-100.0) 09/04/18 09:55 - Physical Exam Vitals and I&O: Vital Signs Temp 97.2 F 09/07/18 04:00 Pulse 65 09/07/18 07:09 Resp 18 09/07/18 07:09 BP 134/60 09/07/18 04:00 Pulse Ox 95 09/07/18 07:09 Intake & Output 09/06/18 09/07/18 09/07/18 18:59 06:59 18:59 Intake Total 3807.442 0630 Balance 3648.290 8534 Weight (lbs) 63.503 kg 63.503 kg Intake: Intake, IV Amount 577.156 0158 Cefepime 1 gm In Dextrose 50 50 5% 50 ml @ 100 mls/hr IV Q12H [facility] Rx#:[id number] Sodium Chloride 0.9% 1, 068.302 8038 000 ml @ 80 mls/hr IV . [id number] [facility] Rx#:[id number] Oral 0 Tube Feeding 700 Other 150 Other: # Voids 3 # Bowel Movements 0 Weight Source Bedscale Bedscale Active Medications: Current Medications Acetaminophen (Tylenol) 650 mg PO Q4H PRN PRN Reason: Pain Or Fever above 101 Stop: 11/03/18 13:02 Al Hydrox/Mg Hydrox/Simethicone (Maalox) 30 ml PO Q6H PRN PRN Reason: Dyspepsia Stop: 11/03/18 13:02 Albuterol Sulfate (Albuterol 2.5mg/3ml Neb Ud) 2.5 mg HHN QIDRT [facility] Stop: 11/03/18 14:59 Last Admin: 09/07/18 06:51 Dose: 2.5 mg Benztropine Mesylate (Cogentin) 2 mg GT DAILY [facility] Stop: 11/04/18 08:59 Last Admin: 09/07/18 09:05 Dose: 2 mg Carbidopa/Levodopa (Sinemet 25mg-100 Mg) 1 tab GT TID [facility] Stop: 11/03/18 13:59 Last Admin: 09/07/18 09:06 Dose: 1 tab Clonazepam (Klonopin) 0.5 mg PO Q8HR [facility]; Protocol Stop: 11/03/18 20:59 Last Admin: 09/07/18 05:59 Dose: 0.5 mg Docusate Sodium (Colace) 100 mg GT BID [facility] Stop: 11/03/18 16:59 Last Admin: 09/07/18 09:05 Dose: 100 mg Fish Oil ([place] 3) 1,000 mg PO DAILY [facility] Stop: 11/04/18 08:59 Last Admin: 09/07/18 09:06 Dose: 1,000 mg Glucagon (Glucagen) 1 mg SUBQ PRN PRN PRN Reason: BS below 60 & not tolerate po Guaifenesin (Robitussin) 200 mg PO Q4HR PRN PRN Reason: Cough or Congestion Stop: 11/03/18 13:02 Heparin Sodium (Porcine) (Heparin) 5,000 units SUBQ Q12HR [facility] Stop: 11/03/18 20:59 Last Admin: 09/07/18 09:17 Dose: 5,000 units Cefepime HCl 1 gm/ Dextrose 50 mls @ 100 mls/hr IV Q12H [facility] Stop: 11/03/18 13:59 Last Infusion: 09/07/18 03:10 Dose: Infused Insulin Aspart (Novolog) 0 units SUBQ ACHS [facility]; Protocol Stop: 11/03/18 16:29 Last Admin: 09/07/18 06:48 Dose: 6 units Ipratropium [place] (Atrovent Neb 0.5mg/2.5ml) 0.5 mg IH QIDRT [facility] Stop: 11/03/18 14:59 Last Admin: 09/07/18 06:51 Dose: 0.5 mg Lactobacillus Rhamnosus (Culturelle 15b) 1 each GT DAILY [facility] Stop: 11/04/18 08:59 Last Admin: 09/07/18 09:06 Dose: 1 each Lorazepam (Ativan) 1 mg GT Q6HR PRN; Protocol PRN Reason: Agitation Stop: 11/03/18 17:59 Last Admin: 09/04/18 15:26 Dose: 1 mg Metformin HCl (Glucophage) 500 mg GT BID [facility] Stop: 11/03/18 16:59 Last Admin: 09/07/18 09:06 Dose: 500 mg Mirtazapine (Remeron) 15 mg GT HS [facility]; Protocol Stop: 11/03/18 20:59 Last Admin: 09/06/18 20:47 Dose: 15 mg Miscellaneous (Probiotic Screen) 1 ea MC PRN PRN PRN Reason: PROTOCOL Stop: 11/04/18 09:27 Multivitamins/Vitamin C (Theragran) 1 tab GT DAILY [facility] Stop: 11/04/18 08:59 Last Admin: 09/07/18 09:05 Dose: 1 tab Nitroglycerin (Nitrostat) 0.4 mg SL Q5MIN PRN PRN Reason: Chest Pain Stop: 11/03/18 13:02 Ondansetron HCl (Zofran) 4 mg IV Q8H PRN PRN Reason: Nausea / Vomiting Stop: 11/03/18 13:02 Pantoprazole Sodium (Protonix) 20 mg GT DAILY [facility] Stop: 11/04/18 08:59 Last Admin: 09/07/18 09:06 Dose: 20 mg Quetiapine Fumarate (Seroquel) 300 mg GT HS [facility]; Protocol Stop: 11/03/18 20:59 Last Admin: 09/06/18 20:47 Dose: 300 mg Valproate Sodium (Depakene) 500 mg GT DAILY [facility] Stop: 11/04/18 08:59 Last Admin: 09/07/18 09:05 Dose: 500 mg Valproate Sodium (Depakene) 750 mg GT HS [facility] Stop: 11/03/18 20:59 Last Admin: 09/06/18 20:48 Dose: 750 mg General: demented HEENT: NC/AT, PERRLA Neck: Supple Lungs: congested, rales, ronchi Cardiovascular: RRR, Normal S1, Normal S2, without murmur Abdomen: soft, non-tender, non-distended Extremities: excoriation, ecchymosis Neurological: lethargic, disorganized, bedbound Internal Medicine Assmt/Plan - Assessment Assessment: - Assessment Assessment: acute resp failure pna leukocytosis acute renal insufficiency r/o dehydration dm seizures schizophrenia - Plan Plan: change ivf to ns suction patient as needed respiratory tx to continue supplemental o2 continue ivabx continue current plan of care - Plan Plan: will check cxr jessica rn Nutritional Asmnt/Malnutr-PDOC - Dietary Evaluation Malnutrition Findings (Please click <Entered> for more info): Nutritional Asmnt/Malnutrition Start: 09/05/18 15: 29 Text: Status: Complete Freq: Protocol: Document 09/05/18 15:31 TANNER (Rec: 09/05/18 16:03 MIKEANTHONY KULWINDER-[email or web address]) Nutritional Asmnt/Malnutrition Patient General Information Nutritional Screening High Risk Consult Diagnosis acute respiratory failure Pertinent Medical Hx/Surgical Hx DM, PUD/GERD, seizures, anemia , schizophrenia, status post UTI, encephalopathy, PEG/Gtube Subjective Information Received consult for g-tube feeding. Pt sleeping; TF not running at time of visit. Per nurse note 09/05: pt is receiving oxygen therapy. Current Diet Order/ Nutrition Support Tube Feeding: Glucerna 1.2 @ 60 ml/hr x 20 hrs Pertinent Medications maalox, colace, omega 3, glucagen, heparin, novolog, culturelle, theragran, zofran, protonix, Nacl 0.9%, seroquel Pertinent Labs 09/05: Na 128, K 3.7, Cl 87, BUN 19, Cr 0.5, glucose 309, POC 312-346, Ca 8.5 09/04: Na 126, K 3.2, Cl 79, BUN 26, Cr 0.7, glucose 226, POC 201-260, Ca 9.3 Nutritional Hx/Data Height 1.63 m Height (Calculated Centimeters) 162.6 Current Weight (lbs) 63.503 kg Weight (Calculated Kilograms) 63.5 Weight (Calculated Grams) 55614.9 [place] Body Weight 130 lb Body Mass Index (BMI) 24.0 Weight Status Approriate GI Symptoms GI Symptoms None Last BM none noted Difficult in: Swallowing Food Allergies No Skin Integrity/Comment: salomón herring 14 Estimated Nutritional Goals BEE in Kcals: Using Current wt Calories/Kcals/Kg 27-32 Kcals Calculated 7597-4219 Protein: Using Current wt Protein g/k.2-1.5 Protein Calculated 76-95 g Fluid: ml 7256-6374 (1 ml/kcal) Nutritional Problem 1. Problem Problem Inadequate energy intake Etiology EN infusion, increased needs for acute respiratory failure Signs/Symptoms: current TF regimen providing 1440 kcals which does not meet 100% of estimated kcal needs Malnutrition Alert Is there a minimum of two criteria No selected? Query Text:Check all the applicable criteria. A minimum of two criteria are recommended for diagnosis of either severe or non-severe malnutrition. Malnutrition Related to Morbid Obesity Malnutrition related to morbid obesity No Intervention/Recommendation Comments 1. Recommend to modify rate of Glucerna 1.2 to 70 ml/hr x 20 hrs, which provides 1680 kcals and 84 g protein, meeting >95% of estimated kcal needs and 100% estimated protein needs 2. Monitor TF rate, tolerance, wt, skin integrity and labs 3. F/U as high risk in 2-3 days, 09/07-09/08 Expected Outcomes/Goals Expected Outcomes/Goals 1. Pt to meet at least 75% of nutritional needs via nutrition support with tolerance 2. Wt stability, skin to remain intact, labs to approach WNL. Reviewed by Theresa Turcios RD
[2018-09-07] MEDS: methylPREDNISolone SS 40 mg Vial IVP SCH ×2 (13:17→21:05)
[2018-09-08] MEDS: methylPREDNISolone SS 40 mg Vial IVP SCH ×2 (04:48→13:39)
[2018-09-08] MEDS: Sodium Chloride 0.9% 1,000 ML IV SCH (05:14)
[2018-09-08] MEDS: Albuterol Nebulizer 2.5mg/3mL HHN SCH ×4 (06:36→19:42)
[2018-09-08] MEDS: Ipratropium Neb 0.5 mg/2.5 mL UD IH SCH ×4 (06:36→19:42)
[2018-09-08] MEDS: INSULIN ASPART, RECOMBINANT 100 UNITS/ML SUBQ SCH ×4 (06:44→21:42)
[2018-09-08 06:55] LABS: ANION GAP 12.1 (7.0-16.0); BUN - UREA NITROGEN 27 mg/dL (7-25); CALCIUM SERUM 7.8 mg/dL (8.6-10.3); CARBON DIOXIDE 27.8 mEq/L (21.0-31.0); CHLORIDE 98 mEq/L (98-107); CREATININE - SERUM 0.6 mg/dL (0.7-1.3); GLUCOSE 201 mg/dL (70-105); POTASSIUM SERUM 4.9 mEq/L (3.5-5.1); SODIUM SERUM 133 mEq/L (136-145)
[2018-09-08] MEDS: Benztropine 1 MG TAB GT SCH (09:15)
[2018-09-08] MEDS: Multivitamin Tab GT SCH (09:15)
[2018-09-08] MEDS: Docusate Sodium 100 mg/10 mL UD GT SCH ×2 (09:15→17:24)
[2018-09-08] MEDS: Pantoprazole 40 mg/Packet GT SCH (09:15)
[2018-09-08] MEDS: Lactobacillus Rhamnosus GG 15 Billion CFU CAP.SPRINK GT SCH (09:15)
[2018-09-08] MEDS: Fish Oil 1,000 MG SGL PO SCH (09:15)
--- NOTE | 2018-09-08 11:13 | Internal Medicine Prog Note ---
Internal Medicine Subjective - Subjective Service Date: 09/08/18 Patient seen and examined:: with staff Patient is:: awake, non-verbal, non-interactive, congested Patient Complaints of:: congestion Per staff patient has:: no adverse event, no episodes of fall, confused, tolerating meds Internal Medicine Objective - Results Result Diagrams: 09/07/18 05:05 09/08/18 06:10 Recent Labs: Laboratory Last Values WBC 9.0 Th/cmm (4.8-10.8) 09/07/18 05:05 RBC 3.26 Mil/cmm (3.80-5.80) L 09/07/18 05:05 Hgb 9.6 gm/dL (12-16) L 09/07/18 05:05 Hct 29.3 % (41.0-60) L 09/07/18 05:05 MCV 89.8 fl (80-99) 09/07/18 05:05 MCH 29.5 pg (27.0-31.0) 09/07/18 05:05 MCHC Differential 32.9 pg (28.0-36.0) 09/07/18 05:05 RDW 14.1 % (11.5-20.0) 09/07/18 05:05 Plt Count 316 Th/cmm (150-400) 09/07/18 05:05 MPV 6.9 fl 09/07/18 05:05 Add Manual Diff YES 09/06/18 05:30 Neutrophils % 87.5 % (40.0-80.0) H 09/07/18 05:05 Band Neutrophils % 0 % (0-10) 09/07/18 05:05 Lymphocytes % 7.8 % (20.0-50.0) L 09/07/18 05:05 Monocytes % 4.4 % (2.0-10.0) 09/07/18 05:05 Eosinophils % 0.1 % (0.0-5.0) 09/07/18 05:05 Basophils % 0.2 % (0.0-2.0) 09/07/18 05:05 Neutrophils (Manual) 88 % (40-80) H 09/07/18 05:05 Lymphocytes 8 % (20-50) L 09/07/18 05:05 Monocytes 4 % (2-10) 09/07/18 05:05 Eosinophils 0 % (0-5) 09/06/18 05:30 Basophils 0 % (0-3) 09/06/18 05:30 Specimen Source Arterial 09/05/18 12:18 Sample Site Right Radial 09/05/18 12:18 pH 7.45 (7.35-7.45) 09/05/18 12:18 pCO2 50.0 mmHg (35.0-45.0) H 09/05/18 12:18 pO2 152.0 mmHg (80.0-100.0) H 09/05/18 12:18 HCO3 32.2 mEq/L (20.0-26.0) H 09/05/18 12:18 Base Excess 9.3 mEq/L (-3.0-3.0) H 09/05/18 12:18 O2 Saturation 99.0 % (92.0-100.0) 09/05/18 12:18 Brad Test Positive 09/05/18 12:18 Vent Rate N/A 09/05/18 12:18 Inspired O2 28 09/05/18 12:18 Tidal Volume N/A 09/05/18 12:18 PEEP N/A 09/05/18 12:18 Pressure (ins/psv/peep) N/A 09/05/18 12:18 Critical Value DM 09/05/18 12:18 Sodium 133 mEq/L (136-145) L 09/08/18 06:10 Potassium 4.9 mEq/L (3.5-5.1) 09/08/18 06:10 Chloride 98 mEq/L (98-107) 09/08/18 06:10 Carbon Dioxide 27.8 mEq/L (21.0-31.0) 09/08/18 06:10 Anion Gap 12.1 (7.0-16.0) 09/08/18 06:10 BUN 27 mg/dL (7-25) H 09/08/18 06:10 Creatinine 0.6 mg/dL (0.7-1.3) L 09/08/18 06:10 Est GFR ( Amer) TNP 09/08/18 06:10 Est GFR (Non-Af Amer) TNP 09/08/18 06:10 BUN/Creatinine Ratio 45.0 09/08/18 06:10 Glucose 201 mg/dL (70-105) H 09/08/18 06:10 POC Glucose 174 MG/DL (70 - 105) H 09/08/18 05:47 Calcium 7.8 mg/dL (8.6-10.3) L 09/08/18 06:10 Ammonia 47 umol/L (16-53) 09/08/18 06:10 B-Natriuretic Peptide 329.0 pg/mL (5.0-100.0) H 09/07/18 05:05 Valproic Acid 71.8 ug/mL (50.0-100.0) 09/04/18 09:55 - Physical Exam Vitals and I&O: Vital Signs Temp 98.2 F 09/08/18 08:00 Pulse 91 09/08/18 10:45 Resp 16 09/08/18 10:45 BP 104/57 09/08/18 08:00 Pulse Ox 94 09/08/18 10:45 Intake & Output 09/07/18 09/08/18 09/08/18 18:59 06:59 18:59 Intake Total 900 1475 Balance 900 1475 Weight (lbs) 140 lb 126 lb 11.2 oz Intake: Intake, IV Amount 50 863 Cefepime 1 gm In Dextrose 50 50 5% 50 ml @ 100 mls/hr IV Q12H [facility] OF [facility] Rx#:[id number] Sodium Chloride 0.9% 1, 813 000 ml @ 60 mls/hr IV . [id number] ON [facility] OF [facility] Rx#:[id number] Oral 0 612 Tube Feeding 700 Other 150 Other: # Voids 3 3 # Bowel Movements 0 Stool Characteristics Soft Brown Weight Source Bedscale Bedscale Active Medications: Current Medications Acetaminophen (Tylenol) 650 mg PO Q4H PRN PRN Reason: Pain Or Fever above 101 Stop: 11/03/18 13:02 Al Hydrox/Mg Hydrox/Simethicone (Maalox) 30 ml PO Q6H PRN PRN Reason: Dyspepsia Stop: 11/03/18 13:02 Albuterol Sulfate (Albuterol 2.5mg/3ml Neb Ud) 2.5 mg HHN QIDRT ON [facility] OF [facility] Stop: 11/03/18 14:59 Last Admin: 09/08/18 10:39 Dose: 2.5 mg Benztropine Mesylate (Cogentin) 2 mg GT DAILY [facility] OF [facility] Stop: 11/04/18 08:59 Last Admin: 09/07/18 09:05 Dose: 2 mg Carbidopa/Levodopa (Sinemet 25mg-100 Mg) 1 tab GT TID [facility] Stop: 11/03/18 13:59 Last Admin: 09/07/18 21:05 Dose: 1 tab Clonazepam (Klonopin) 0.5 mg PO Q8HR [facility]; Protocol Stop: 11/03/18 20:59 Last Admin: 09/08/18 05:49 Dose: 0.5 mg Docusate Sodium (Colace) 100 mg GT BID [facility] Stop: 11/03/18 16:59 Last Admin: 09/07/18 16:26 Dose: 100 mg Fish Oil ([place] 3) 1,000 mg PO DAILY [facility] Stop: 11/04/18 08:59 Last Admin: 09/07/18 09:06 Dose: 1,000 mg Glucagon (Glucagen) 1 mg SUBQ PRN PRN PRN Reason: BS below 60 & not tolerate po Guaifenesin (Robitussin) 200 mg PO Q4HR PRN PRN Reason: Cough or Congestion Stop: 11/03/18 13:02 Heparin Sodium (Porcine) (Heparin) 5,000 units SUBQ Q12HR [facility] Stop: 11/03/18 20:59 Last Admin: 09/07/18 21:07 Dose: 5,000 units Cefepime HCl 1 gm/ Dextrose 50 mls @ 100 mls/hr IV Q12H ON [facility] OF [facility] Stop: 11/03/18 13:59 Last Infusion: 09/08/18 02:10 Dose: Infused Sodium Chloride (Nacl 0.9%) 1,000 mls @ 60 mls/hr IV .[id number] ON [facility] OF [facility] Stop: 11/06/18 10:14 Last Admin: 09/08/18 05:14 Dose: 60 mls/hr Insulin Aspart (Novolog) 0 units SUBQ ACHS ON [facility] OF [facility]; Protocol Stop: 11/03/18 16:29 Last Admin: 09/08/18 06:44 Dose: Not Given Ipratropium [place] (Atrovent Neb 0.5mg/2.5ml) 0.5 mg IH QIDRT ON [facility] OF [facility] Stop: 11/03/18 14:59 Last Admin: 09/08/18 10:39 Dose: 0.5 mg Lactobacillus Rhamnosus (Culturelle 15b) 1 each GT DAILY [facility] Stop: 11/04/18 08:59 Last Admin: 09/07/18 09:06 Dose: 1 each Lorazepam (Ativan) 1 mg GT Q6HR PRN; Protocol PRN Reason: Agitation Stop: 11/03/18 17:59 Last Admin: 09/07/18 15:52 Dose: 1 mg Metformin HCl (Glucophage) 500 mg GT BID [facility] Stop: 11/03/18 16:59 Last Admin: 09/07/18 16:26 Dose: 500 mg Methylprednisolone Sodium Succinate (Solu-Medrol) 60 mg IVP Q8HR [facility] Stop: 11/06/18 12:59 Last Admin: 09/08/18 04:48 Dose: 60 mg Mirtazapine (Remeron) 15 mg GT HS [facility]; Protocol Stop: 11/03/18 20:59 Last Admin: 09/07/18 21:05 Dose: 15 mg Miscellaneous (Probiotic Screen) 1 ea MC PRN PRN PRN Reason: PROTOCOL Stop: 11/04/18 09:27 Multivitamins/Vitamin C (Theragran) 1 tab GT DAILY [facility] Stop: 11/04/18 08:59 Last Admin: 09/07/18 09:05 Dose: 1 tab Nitroglycerin (Nitrostat) 0.4 mg SL Q5MIN PRN PRN Reason: Chest Pain Stop: 11/03/18 13:02 Ondansetron HCl (Zofran) 4 mg IV Q8H PRN PRN Reason: Nausea / Vomiting Stop: 11/03/18 13:02 Pantoprazole Sodium (Protonix) 20 mg GT DAILY [facility] Stop: 11/04/18 08:59 Last Admin: 09/07/18 09:06 Dose: 20 mg Quetiapine Fumarate (Seroquel) 300 mg GT HS [facility] OF [facility]; Protocol Stop: 11/03/18 20:59 Last Admin: 09/07/18 21:06 Dose: 300 mg Valproate Sodium (Depakene) 500 mg GT DAILY [facility] Stop: 11/04/18 08:59 Last Admin: 09/07/18 09:05 Dose: 500 mg Valproate Sodium (Depakene) 750 mg GT HS [facility] Stop: 11/03/18 20:59 Last Admin: 09/07/18 21:05 Dose: 750 mg General: demented HEENT: NC/AT, PERRLA Neck: Supple Lungs: congested, rales, ronchi Cardiovascular: RRR, Normal S1, Normal S2, without murmur Abdomen: soft, non-tender, non-distended Extremities: excoriation, ecchymosis Neurological: lethargic, disorganized, bedbound Internal Medicine Assmt/Plan - Assessment Assessment: acute resp failure pna leukocytosis acute renal insufficiency r/o dehydration dm seizures schizophrenia - Plan Plan: suction patient as needed respiratory tx to continue supplemental o2 continue ivabx continue current plan of care Nutritional Asmnt/Malnutr-PDOC - Dietary Evaluation Malnutrition Findings (Please click <Entered> for more info): Nutritional Asmnt/Malnutrition Start: 09/05/18 15: 29 Text: Status: Complete Freq: Protocol: Document 09/05/18 15:31 TANNER (Rec: 09/05/18 16:03 TANNER [email or web address]) Nutritional Asmnt/Malnutrition Patient General Information Nutritional Screening High Risk Consult Diagnosis acute respiratory failure Pertinent Medical Hx/Surgical Hx DM, PUD/GERD, seizures, anemia , schizophrenia, status post UTI, encephalopathy, PEG/Gtube Subjective Information Received consult for g-tube feeding. Pt sleeping; TF not running at time of visit. Per nurse note 09/05: pt is receiving oxygen therapy. Current Diet Order/ Nutrition Support Tube Feeding: Glucerna 1.2 @ 60 ml/hr x 20 hrs Pertinent Medications maalox, colace, omega 3, glucagen, heparin, novolog, culturelle, theragran, zofran, protonix, Nacl 0.9%, seroquel Pertinent Labs 09/05: Na 128, K 3.7, Cl 87, BUN 19, Cr 0.5, glucose 309, POC 312-346, Ca 8.5 09/04: Na 126, K 3.2, Cl 79, BUN 26, Cr 0.7, glucose 226, POC 201-260, Ca 9.3 Nutritional Hx/Data Height 5 ft 4 in Height (Calculated Centimeters) 162.6 Current Weight (lbs) 140 lb Weight (Calculated Kilograms) 63.5 Weight (Calculated Grams) 73747.9 [place] Body Weight 130 lb Body Mass Index (BMI) 24.0 Weight Status Approriate GI Symptoms GI Symptoms None Last BM none noted Difficult in: Swallowing Food Allergies No Skin Integrity/Comment: intact, salomón 14 Estimated Nutritional Goals BEE in Kcals: Using Current wt Calories/Kcals/Kg 27-32 Kcals Calculated 6154-3527 Protein: Using Current wt Protein g/k.2-1.5 Protein Calculated 76-95 g Fluid: ml 1023-4595 (1 ml/kcal) Nutritional Problem 1. Problem Problem Inadequate energy intake Etiology EN infusion, increased needs for acute respiratory failure Signs/Symptoms: current TF regimen providing 1440 kcals which does not meet 100% of estimated kcal needs Malnutrition Alert Is there a minimum of two criteria No selected? Query Text:Check all the applicable criteria. A minimum of two criteria are recommended for diagnosis of either severe or non-severe malnutrition. Malnutrition Related to Morbid Obesity Malnutrition related to morbid obesity No Intervention/Recommendation Comments 1. Recommend to modify rate of Glucerna 1.2 to 70 ml/hr x 20 hrs, which provides 1680 kcals and 84 g protein, meeting >95% of estimated kcal needs and 100% estimated protein needs 2. Monitor TF rate, tolerance, wt, skin integrity and labs 3. F/U as high risk in 2-3 days, 09/07-09/08 Expected Outcomes/Goals Expected Outcomes/Goals 1. Pt to meet at least 75% of nutritional needs via nutrition support with tolerance 2. Wt stability, skin to remain intact, labs to approach WNL. Reviewed by Theresa Turcios RD
[2018-09-09] MEDS: Sodium Chloride 0.9% 1,000 ML IV SCH (02:17)
[2018-09-09 04:42] LABS: HEMATOCRIT 32.5 % (41.0-60); HEMOGLOBIN 10.8 gm/dL (12-16); MEAN CELL VOLUME 90.1 fl (80-99); MEAN CORPUSCULAR HEMOGLOBIN 29.8 pg (27.0-31.0); MEAN CORPUSCULAR HGB CONC 33.1 pg (28.0-36.0); MEAN PLATELET VOLUME 7.2 fl; PLATELET COUNT 328 Th/cmm (150-400); RED CELL DISTRIBUTION WIDTH 14.3 % (11.5-20.0)
[2018-09-09 05:24] LABS: ANION GAP 14.8 (7.0-16.0); BUN - UREA NITROGEN 27 mg/dL (7-25); CALCIUM SERUM 8.2 mg/dL (8.6-10.3); CARBON DIOXIDE 25.8 mEq/L (21.0-31.0); CHLORIDE 97 mEq/L (98-107); CREATININE - SERUM 0.6 mg/dL (0.7-1.3); GLUCOSE 253 mg/dL (70-105); POTASSIUM SERUM 4.6 mEq/L (3.5-5.1); SODIUM SERUM 133 mEq/L (136-145)
[2018-09-09 06:29] LABS: BAND NEUTROPHILE 0 % (0-10); LYMPHOCYTE 8 % (20-50); MONOCYTE 4 % (2-10); NEUTROPHILS 88 % (40-80)
[2018-09-09] MEDS: INSULIN ASPART, RECOMBINANT 100 UNITS/ML SUBQ SCH ×3 (06:41→17:35)
[2018-09-09] MEDS: Ipratropium Neb 0.5 mg/2.5 mL UD IH SCH ×3 (07:05→14:21)
[2018-09-09] MEDS: Albuterol Nebulizer 2.5mg/3mL HHN SCH ×3 (07:05→14:21)
[2018-09-09] MEDS: Benztropine 1 MG TAB GT SCH (08:56)
[2018-09-09] MEDS: Pantoprazole 40 mg/Packet GT SCH (08:56)
[2018-09-09] MEDS: Multivitamin Tab GT SCH (08:57)
[2018-09-09] MEDS: Fish Oil 1,000 MG SGL PO SCH (08:57)
[2018-09-09] MEDS: Lactobacillus Rhamnosus GG 15 Billion CFU CAP.SPRINK GT SCH (08:57)
[2018-09-09] MEDS: Docusate Sodium 100 mg/10 mL UD GT SCH (08:58)
[2018-09-09 11:10] LABS: FOLIC ACID 18.2 ng/mL (>3.0)
--- NOTE | 2018-09-09 14:55 | Internal Medicine Prog Note ---
Internal Medicine Subjective - Subjective Service Date: 09/09/18 (dc summary [id number]) Patient is:: awake, non-verbal, non-interactive, congested Patient Complaints of:: congestion Per staff patient has:: no adverse event, no episodes of fall, confused, tolerating meds Internal Medicine Objective - Results Result Diagrams: 09/09/18 04:25 09/09/18 04:25 Recent Labs: Laboratory Last Values WBC 8.0 Th/cmm (4.8-10.8) 09/09/18 04:25 RBC 3.60 Mil/cmm (3.80-5.80) L 09/09/18 04:25 Hgb 10.8 gm/dL (12-16) L 09/09/18 04:25 Hct 32.5 % (41.0-60) L 09/09/18 04:25 MCV 90.1 fl (80-99) 09/09/18 04:25 MCH 29.8 pg (27.0-31.0) 09/09/18 04:25 MCHC Differential 33.1 pg (28.0-36.0) 09/09/18 04:25 RDW 14.3 % (11.5-20.0) 09/09/18 04:25 Plt Count 328 Th/cmm (150-400) 09/09/18 04:25 MPV 7.2 fl 09/09/18 04:25 Add Manual Diff YES 09/09/18 04:25 Neutrophils % 87.5 % (40.0-80.0) H 09/07/18 05:05 Band Neutrophils % 0 % (0-10) 09/09/18 04:25 Lymphocytes % 7.8 % (20.0-50.0) L 09/07/18 05:05 Monocytes % 4.4 % (2.0-10.0) 09/07/18 05:05 Eosinophils % 0.1 % (0.0-5.0) 09/07/18 05:05 Basophils % 0.2 % (0.0-2.0) 09/07/18 05:05 Neutrophils (Manual) 88 % (40-80) H 09/09/18 04:25 Lymphocytes 8 % (20-50) L 09/09/18 04:25 Monocytes 4 % (2-10) 09/09/18 04:25 Eosinophils 0 % (0-5) 09/06/18 05:30 Basophils 0 % (0-3) 09/06/18 05:30 Specimen Source Arterial 09/05/18 12:18 Sample Site Right Radial 09/05/18 12:18 pH 7.45 (7.35-7.45) 09/05/18 12:18 pCO2 50.0 mmHg (35.0-45.0) H 09/05/18 12:18 pO2 152.0 mmHg (80.0-100.0) H 09/05/18 12:18 HCO3 32.2 mEq/L (20.0-26.0) H 09/05/18 12:18 Base Excess 9.3 mEq/L (-3.0-3.0) H 09/05/18 12:18 O2 Saturation 99.0 % (92.0-100.0) 09/05/18 12:18 Brad Test Positive 09/05/18 12:18 Vent Rate N/A 09/05/18 12:18 Inspired O2 28 09/05/18 12:18 Tidal Volume N/A 09/05/18 12:18 PEEP N/A 09/05/18 12:18 Pressure (ins/psv/peep) N/A 09/05/18 12:18 Critical Value DM 09/05/18 12:18 Sodium 133 mEq/L (136-145) L 09/09/18 04:25 Potassium 4.6 mEq/L (3.5-5.1) 09/09/18 04:25 Chloride 97 mEq/L (98-107) L 09/09/18 04:25 Carbon Dioxide 25.8 mEq/L (21.0-31.0) 09/09/18 04:25 Anion Gap 14.8 (7.0-16.0) 09/09/18 04:25 BUN 27 mg/dL (7-25) H 09/09/18 04:25 Creatinine 0.6 mg/dL (0.7-1.3) L 09/09/18 04:25 Est GFR ( Amer) TNP 09/09/18 04:25 Est GFR (Non-Af Amer) TNP 09/09/18 04:25 BUN/Creatinine Ratio 45.0 09/09/18 04:25 Glucose 253 mg/dL (70-105) H 09/09/18 04:25 POC Glucose 250 MG/DL (70 - 105) H 09/09/18 11:49 Calcium 8.2 mg/dL (8.6-10.3) L 09/09/18 04:25 Ammonia 47 umol/L (16-53) 09/08/18 06:10 B-Natriuretic Peptide 329.0 pg/mL (5.0-100.0) H 09/07/18 05:05 Vitamin B12 577 pg/mL (232-1245) 09/08/18 06:10 Folic Acid 18.2 ng/mL (>3.0) 09/08/18 06:10 Valproic Acid 71.8 ug/mL (50.0-100.0) 09/04/18 09:55 - Physical Exam Vitals and I&O: Vital Signs Temp 97.8 F 09/09/18 13:00 Pulse 85 09/09/18 14:21 Resp 18 09/09/18 14:21 BP 125/75 09/09/18 13:00 Pulse Ox 99 09/09/18 14:21 Intake & Output 09/08/18 09/09/18 09/09/18 18:59 06:59 18:59 Intake Total 610 1050 Balance 610 1050 Weight (lbs) 126 lb Intake: Intake, IV Amount 50 1050 Cefepime 1 gm In Dextrose 50 50 5% 50 ml @ 100 mls/hr IV Q12H [facility] Rx#:[id number] Sodium Chloride 0.9% 1, 1000 000 ml @ 60 mls/hr IV . [id number] [facility] Rx#:[id number] Tube Feeding 560 Other: # Voids 2 Stool Characteristics Soft Brown Weight Source Estimated Active Medications: Current Medications Acetaminophen (Tylenol) 650 mg PO Q4H PRN PRN Reason: Pain Or Fever above 101 Stop: 11/03/18 13:02 Al Hydrox/Mg Hydrox/Simethicone (Maalox) 30 ml PO Q6H PRN PRN Reason: Dyspepsia Stop: 11/03/18 13:02 Albuterol Sulfate (Albuterol 2.5mg/3ml Neb Ud) 2.5 mg HHN QIDRT [facility] Stop: 11/03/18 14:59 Last Admin: 09/09/18 14:21 Dose: Not Given Benztropine Mesylate (Cogentin) 2 mg GT DAILY [facility] Stop: 11/04/18 08:59 Last Admin: 09/09/18 08:56 Dose: 2 mg Carbidopa/Levodopa (Sinemet 25mg-100 Mg) 1 tab GT TID [facility] Stop: 11/03/18 13:59 Last Admin: 09/09/18 13:51 Dose: 1 tab Clonazepam (Klonopin) 0.5 mg PO Q8HR [facility]; Protocol Stop: 11/03/18 20:59 Last Admin: 09/09/18 13:51 Dose: 0.5 mg Docusate Sodium (Colace) 100 mg GT BID [facility] Stop: 11/03/18 16:59 Last Admin: 09/09/18 08:58 Dose: 100 mg Fish Oil ([place] 3) 1,000 mg PO DAILY [facility] Stop: 11/04/18 08:59 Last Admin: 09/09/18 08:57 Dose: 1,000 mg Glucagon (Glucagen) 1 mg SUBQ PRN PRN PRN Reason: BS below 60 & not tolerate po Guaifenesin (Robitussin) 200 mg PO Q4HR PRN PRN Reason: Cough or Congestion Stop: 11/03/18 13:02 Heparin Sodium (Porcine) (Heparin) 5,000 units SUBQ Q12HR [facility] Stop: 11/03/18 20:59 Last Admin: 09/09/18 08:58 Dose: 5,000 units Cefepime HCl 1 gm/ Dextrose 50 mls @ 100 mls/hr IV Q12H [facility] Stop: 11/03/18 13:59 Last Infusion: 09/09/18 02:50 Dose: Infused Sodium Chloride (Nacl 0.9%) 1,000 mls @ 60 mls/hr IV .[id number] [facility] Stop: 11/06/18 10:14 Last Admin: 09/09/18 02:17 Dose: 60 mls/hr Insulin Aspart (Novolog) 0 units SUBQ ACHS [facility]; Protocol Stop: 11/03/18 16:29 Last Admin: 09/09/18 11:59 Dose: 2 units Ipratropium [place] (Atrovent Neb 0.5mg/2.5ml) 0.5 mg IH QIDRT [facility] Stop: 11/03/18 14:59 Last Admin: 09/09/18 14:21 Dose: Not Given Lactobacillus Rhamnosus (Culturelle 15b) 1 each GT DAILY [facility] Stop: 11/04/18 08:59 Last Admin: 09/09/18 08:57 Dose: 1 each Lorazepam (Ativan) 1 mg GT Q6HR PRN; Protocol PRN Reason: Agitation Stop: 11/03/18 17:59 Last Admin: 09/07/18 15:52 Dose: 1 mg Metformin HCl (Glucophage) 500 mg GT BID [facility] Stop: 11/03/18 16:59 Last Admin: 09/09/18 08:57 Dose: 500 mg Methylprednisolone Sodium Succinate (Solu-Medrol) 60 mg IVP Q8HR [facility] Stop: 11/06/18 12:59 Last Admin: 09/09/18 13:50 Dose: 60 mg Mirtazapine (Remeron) 15 mg GT HS [facility]; Protocol Stop: 11/03/18 20:59 Last Admin: 09/08/18 21:43 Dose: 15 mg Miscellaneous (Probiotic Screen) 1 ea MC PRN PRN PRN Reason: PROTOCOL Stop: 11/04/18 09:27 Multivitamins/Vitamin C (Theragran) 1 tab GT DAILY [facility] Stop: 11/04/18 08:59 Last Admin: 09/09/18 08:57 Dose: 1 tab Nitroglycerin (Nitrostat) 0.4 mg SL Q5MIN PRN PRN Reason: Chest Pain Stop: 11/03/18 13:02 Ondansetron HCl (Zofran) 4 mg IV Q8H PRN PRN Reason: Nausea / Vomiting Stop: 11/03/18 13:02 Pantoprazole Sodium (Protonix) 20 mg GT DAILY [facility] Stop: 11/04/18 08:59 Last Admin: 09/09/18 08:56 Dose: 20 mg Quetiapine Fumarate (Seroquel) 300 mg GT HS [facility]; Protocol Stop: 11/03/18 20:59 Last Admin: 09/08/18 21:43 Dose: 300 mg Valproate Sodium (Depakene) 500 mg GT DAILY [facility] Stop: 11/04/18 08:59 Last Admin: 09/09/18 08:58 Dose: 500 mg Valproate Sodium (Depakene) 750 mg GT HS [facility] Stop: 11/03/18 20:59 Last Admin: 09/08/18 21:44 Dose: 750 mg General: demented HEENT: NC/AT, PERRLA Neck: Supple Lungs: congested, rales, ronchi Cardiovascular: RRR, Normal S1, Normal S2, without murmur Abdomen: soft, non-tender, non-distended Extremities: excoriation, ecchymosis Neurological: lethargic, disorganized, bedbound Internal Medicine Assmt/Plan - Assessment Assessment: acute resp failure pna leukocytosis acute renal insufficiency r/o dehydration dm seizures schizophrenia - Plan Plan: suction patient as needed respiratory tx to continue supplemental o2 continue ivabx continue current plan of care Nutritional Asmnt/Malnutr-PDOC - Dietary Evaluation Malnutrition Findings (Please click <Entered> for more info): Nutritional Asmnt/Malnutrition Start: 09/05/18 15: 29 Text: Status: Complete Freq: Protocol: Document 09/05/18 15:31 TANNER (Rec: 09/05/18 16:03 TANNER [email or web address]) Nutritional Asmnt/Malnutrition Patient General Information Nutritional Screening High Risk Consult Diagnosis acute respiratory failure Pertinent Medical Hx/Surgical Hx DM, PUD/GERD, seizures, anemia , schizophrenia, status post UTI, encephalopathy, PEG/Gtube Subjective Information Received consult for g-tube feeding. Pt sleeping; TF not running at time of visit. Per nurse note 09/05: pt is receiving oxygen therapy. Current Diet Order/ Nutrition Support Tube Feeding: Glucerna 1.2 @ 60 ml/hr x 20 hrs Pertinent Medications maalox, colace, omega 3, glucagen, heparin, novolog, culturelle, theragran, zofran, protonix, Nacl 0.9%, seroquel Pertinent Labs 09/05: Na 128, K 3.7, Cl 87, BUN 19, Cr 0.5, glucose 309, POC 312-346, Ca 8.5 09/04: Na 126, K 3.2, Cl 79, BUN 26, Cr 0.7, glucose 226, POC 201-260, Ca 9.3 Nutritional Hx/Data Height 5 ft 4 in Height (Calculated Centimeters) 162.6 Current Weight (lbs) 140 lb Weight (Calculated Kilograms) 63.5 Weight (Calculated Grams) 53969.9 [place] Body Weight 130 lb Body Mass Index (BMI) 24.0 Weight Status Approriate GI Symptoms GI Symptoms None Last BM none noted Difficult in: Swallowing Food Allergies No Skin Integrity/Comment: intact, salomón 14 Estimated Nutritional Goals BEE in Kcals: Using Current wt Calories/Kcals/Kg 27-32 Kcals Calculated 4727-2460 Protein: Using Current wt Protein g/k.2-1.5 Protein Calculated 76-95 g Fluid: ml 3326-5578 (1 ml/kcal) Nutritional Problem 1. Problem Problem Inadequate energy intake Etiology EN infusion, increased needs for acute respiratory failure Signs/Symptoms: current TF regimen providing 1440 kcals which does not meet 100% of estimated kcal needs Malnutrition Alert Is there a minimum of two criteria No selected? Query Text:Check all the applicable criteria. A minimum of two criteria are recommended for diagnosis of either severe or non-severe malnutrition. Malnutrition Related to Morbid Obesity Malnutrition related to morbid obesity No Intervention/Recommendation Comments 1. Recommend to modify rate of Glucerna 1.2 to 70 ml/hr x 20 hrs, which provides 1680 kcals and 84 g protein, meeting >95% of estimated kcal needs and 100% estimated protein needs 2. Monitor TF rate, tolerance, wt, skin integrity and labs 3. F/U as high risk in 2-3 days, 09/07-09/08 Expected Outcomes/Goals Expected Outcomes/Goals 1. Pt to meet at least 75% of nutritional needs via nutrition support with tolerance 2. Wt stability, skin to remain intact, labs to approach WNL. Reviewed by Theresa Turcios RD
--- NOTE | 2018-09-09 16:11 | Discharge Summary ---
DATE OF DISCHARGE: 09/09/2018 FINAL DIAGNOSES: 1. Acute respiratory failure. 2. Pneumonia. 3. Leukocytosis. 4. Acute renal insufficiency secondary to dehydration. 5. Diabetes. 6. Seizures. 7. Schizophrenia. HISTORY OF PRESENT ILLNESS: This is a 73-year-old male who is a intermediate resident, transferred to [facility] due to hypoxemia. In the ER, the patient was noted to have oxygen saturation of 72%. Upon examination at present time, the patient was noted to be very congested, unable to produce a strong cough. PHYSICAL EXAMINATION: GENERAL: Elderly male, appears chronically ill. VITAL SIGNS: Stable. HEENT: Head normocephalic and atraumatic. NECK: Supple. No mass. LUNGS: Scattered rhonchi bilaterally with some wheezes. CARDIOVASCULAR: No murmurs or gallops. ABDOMEN: Soft, nontender and nondistended. EXTREMITIES: No edema noted. HOSPITAL COURSE: During the hospital stay, the patient was admitted to the telemetry unit. We obtain sputum culture negative for any growth as well as blood culture negative for any growth. The patient was on aggressive respiratory treatments and was getting suctioning as well. The patient was also seen by Pulmonology. The patient was kept on empiric IV antibiotics. Due to patient's need of IV antibiotics and due to the unresolved congestion the patient will be transferred to [facility]. CONDITION UPON DISCHARGE: Fair. DISPOSITION: [facility]. JOB# [id number]
== END 2018-09-09 18:30 | DRG 871 ==
LOC: ER 09:43 → TELE 11:30
PROVIDERS: ADMIT Internal Medicine; ATTEND Internal Medicine
DX: A41.9 Sepsis, unspecified organism (principal); J18.9 Pneumonia, unspecified organism; J96.01 Acute respiratory failure with hypoxia; E87.1 Hypo-osmolality and hyponatremia; C15.9 Malignant neoplasm of esophagus, unspecified; E86.0 Dehydration; R56.9 Unspecified convulsions; F20.9 Schizophrenia, unspecified; K21.9 Gastro-esophageal reflux disease without esophagitis; Z93.1 Gastrostomy status; E11.65 Type 2 diabetes mellitus with hyperglycemia; F03.90 Unspecified dementia, unspecified severity, without behavioral disturbance, psychotic disturbance, mood disturbance, and anxiety; J20.9 Acute bronchitis, unspecified; N28.9 Disorder of kidney and ureter, unspecified; Z79.4 Long term (current) use of insulin
CPT/HCPCS: 36415-UA; 36600-90; 71045-TC; 80048-TC; 80164-TC; 82140-TC; 82607-90; 82746-90; 82803-TC; 82948-90; 83036-90; 83880-TC; 85007-TC; 85025-TC; 87070; 90779; 94640; 94760; J0692; J1644; J1815; J2060; J2920; J2930; J7030; J7042; J7613; X7704; Z7610